=== PATIENT | female | born 1955 | race Caucasian/White ===

== ENCOUNTER 2020-09-13 12:42 | Emergency (ER) | payer MEDICARE, MEDICAID, SELFPAY ==
--- NOTE | 2020-09-13 | ECG_ITS ---
Test Reason : BACK PAIN Blood Pressure : / mmHG Vent. Rate : 070 BPM Atrial Rate : 070 BPM P-R Int : 168 ms QRS Dur : 082 ms QT Int : 380 ms P-R-T Axes : 060 063 048 degrees QTc Int : 410 ms Normal sinus rhythm Normal ECG No previous ECGs available Referred By: Jerald Quach Electronically Signed By:Milo Wilcox
--- NOTE | ~2020-09-13 | XR_ITS ---
EXAMINATION: XR CHEST CLINICAL INFORMATION: Chest wall and posterior rib pain COMPARISON: None TECHNIQUE: 2 views of the chest were obtained. FINDINGS: The heart does not appear enlarged. The thoracic aorta is tortuous. Hilar and mediastinal contours are otherwise unremarkable. The lungs are clear. There is no pleural effusion or pneumothorax. There are degenerative changes of the spine. XR/XR chest 2V IMPRESSION: Tortuous thoracic aorta. No evidence for acute disease in the chest.
[2020-09-13 13:05] VITALS: BP 135/44; PULSE 77; RESP 16; TEMP 36.4; O2SAT 98; BMI 27.4
[2020-09-13 14:36] LABS: MANUAL DIFF FLAG NO
[2020-09-13 14:38] LABS: Basophils Percent Auto 0.4 % (0-2); Eosinophils Absolute Auto 0.2 X10*3/uL (0.0-0.4); Hematocrit 41.2 % (37-47); Hemoglobin 14.1 g/dl (12.0-16.0); Imm Gran Abs Auto 0.02 X10*3/uL (0.00-0.03); Imm Gran Pct Auto 0.2 % (0.0-0.4); Lymphocytes Percent Auto 35.8 % (20-40); Mean Corpuscular HGB Conc 34.2 g/dl (31.0-35.0); Mean Corpuscular Hemoglobin 31.1 pg (27.0-33.0); Mean Corpuscular Volume 90.7 fL (80-98); Mean Platelet Volume 9.5 fL (9.4-12.3); Monocytes Absolute Auto 0.5 X10*3/uL (0.1-1.2); Monocytes Percent Auto 5.7 % (2-11); Neutrophils Absolute Auto 4.6 X10*3/uL (2.0-8.3); Neutrophils Percent Auto 55.9 % (45-73); Platelet Count 270 X10*3/uL (160-400); Red Blood Count 4.54 X10*6/uL (4.20-5.50); Red Cell Distribution Width 12.3 % (11.0-16.0); White Blood Count 8.3 X10*3/uL (4.8-10.8)
[2020-09-13 15:06] LABS: Anion Gap 14 (12-20); Blood Urea Nitrogen 18 mg/dL (9-16); Calcium 9.6 mg/dL (8.4-10.2); Carbon Dioxide 27 mmol/L (22-29); Chloride 99 mmol/L (96-108); Creatinine Clr Calc Pharmacy 78.1; Estimated Glomerular Filt Rate > 60; Glucose Random 106 mg/dL (60-115); Potassium 3.5 mmol/L (3.3-5.1); Sodium 136 mmol/L (135-145)
[2020-09-13 15:15] LABS: Troponin-I High Sensitivity < 3.5 ng/L (<3.5-17.0)
--- NOTE | 2020-09-13 15:21 | ED_ITS ---
HPI - General Adult General Chief complaint: Back Pain/Injury Stated complaint: BACK PAIN Time Seen by Provider: 09/13/20 13:49 History of Present Illness HPI narrative: Patient with 2 complaints First complaint is over the last month she has had several episodes of a sharp chest pain when she is walking that lasts for short amount of time and goes away, this has not happened for about a week and at this time she has no chest pain shortness of breath, she has never had sweating from her forehead she has never had palpitations fainting or feeling faint no nausea Second complaint is for several days she has had a pain in the left side lower posterior rib area that hurts with certain movements or when she touches it, there is no associated chest pain or shortness of breath or numbness weakness or tingling No changes to bowel or bladder Related Data Previous Rx's Medication Instructions Recorded oxycodone 5 mg PO Q6H PRN #10 tab 09/13/20 Allergies Allergy/AdvReac Type Severity Reaction Status Date / Time aspirin [ASPIRIN] Allergy Unknown SICK TO Unverified 01/21/20 16:32 STOMACH Review of Systems Review of Systems: Positive for left side mid back pain worse with movement as well as resolved episodes of chest pain last 1 1 week ago Negatives are no fever no chills no dizziness no fainting no feeling faint no shortness of breath no radiation of pain no neck pain no numbness weakness or tingling no abdominal pain no nausea or vomiting, no skin rashes, no leg swelling or pain Yes all other systems are reviewed and are negative PMFSH Past Medical History Source: nursing notes reviewed Medical History (Updated 09/14/20 @ 00:00 by Issa Devine) Asthma delivery delivered COPD (chronic obstructive pulmonary disease) Degenerative disc disease GERD (gastroesophageal reflux disease) High cholesterol HTN (hypertension) Sciatica Surgical History (Updated 09/13/20 @ 13:08 by Bhupendra Israel) History of appendectomy Social History Social History Advance Directives: No Advance Directives Information Provided: No Physical Exam Vital Signs: Vital Signs: Last Vital Signs Temp 97.6 F 09/13/20 13:05 Pulse 70 09/13/20 16:00 Resp 17 09/13/20 16:00 BP 132/70 09/13/20 16:00 Pulse Ox 96 09/13/20 16:00 Body Mass Index 27.4 General appearance patient is comfortable in no acute distress Head is normocephalic atraumatic Neck is supple The chest is clear to auscultation bilaterally with full symmetric equal breath sounds no adventitious sounds The heart rate and rhythm regular no murmur The abdomen soft nontender The back there was some posterior lateral low rib tenderness, skin was normal, there was no CVA tenderness no spinal tenderness, left rib pain was absent at rest but was easily reproduced with movement and palpation Extremities are full range of motion x4, no edema no calf tenderness or swelling Neuro no gross motor or sensory deficit Course Course Course Narrative: EKG was a normal sinus rhythm, no acute ST or T-wave changes, ventricular rate was 70 QRS duration was 82, normal ND interval was normal, QT was normal, no acute ischemic changes Chest x-ray showed tortuous aorta, no heart enlargement no evidence of pneumonia or pneumothorax Other labs were normal including a troponinLess than 3.5 which is normal, 1 troponin was done today as she had not had any chest pain for about 1 week and has had no chest pain today or in the recent days Patient had reproducible left mid upper back tenderness worse with movement, and is easily reproducible. this is not related to the chest pain that she has had with walking and has been going on for 3 days and seems to be musculoskeletal in nature, and is a separate issue from the chest pain She is treated for musculoskeletal back pain with Tylenol and oxycodone as needed Plan for chest pain is follow with primary doctor this week for referral to possible microstrategy architect for stress testing and further evaluation of her chest pains that happen intermittently with walking Medical Decision Making Lab Data Result diagrams: 09/13/20 14:26 09/13/20 14:26 Labs: Lab Results 09/13/20 09/13/20 09/13/20 Range/Units 14:26 14:26 14:26 WBC 8.3 (4.8-10.8) X10*3/uL RBC 4.54 (4.20-5.50) X10*6/uL Hgb 14.1 (12.0-16.0) g/dl Hct 41.2 (37-47) % MCV 90.7 (80-98) fL MCH 31.1 (27.0-33.0) pg MCHC 34.2 (31.0-35.0) g/dl RDW 12.3 (11.0-16.0) % Plt Count 270 (160-400) X10*3/uL MPV 9.5 (9.4-12.3) fL Immature Gran % (Auto) 0.2 (0.0-0.4) % Neut % (Auto) 55.9 (45-73) % Lymph % (Auto) 35.8 (20-40) % [place] % (Auto) 5.7 (2-11) % Eos % (Auto) 2.0 (0-4) % Baso % (Auto) 0.4 (0-2) % Lymph # (Auto) 3.0 (1.2-4.9) X10*3/uL [place] # (Auto) 0.5 (0.1-1.2) X10*3/uL Eos # (Auto) 0.2 (0.0-0.4) X10*3/uL Baso # (Auto) 0.0 (0.0-0.2) X10*3/uL Abs Immat Gran (auto) 0.02 (0.00-0.03) X10*3/uL Absolute Neuts (auto) 4.6 (2.0-8.3) X10*3/uL Absolute Nucleated RBC 0.000 (0.0-0.012) X10*3/uL Nucleated RBC % (auto) 0.0 (0.0-0.2) /100WBC Sodium 136 (135-145) mmol/L Potassium 3.5 (3.3-5.1) mmol/L Chloride 99 (96-108) mmol/L Carbon Dioxide 27 (22-29) mmol/L Anion Gap 14 (12-20) BUN 18 H (9-16) mg/dL Creatinine 0.71 (0.5-1.4) mg/dL Estim Creat Clear Calc 78.1 Estimated GFR > 60 Random Glucose 106 (60-115) mg/dL Calcium 9.6 (8.4-10.2) mg/dL Troponin I High Sens < 3.5 (<3.5-17.0) ng/L Discharge Plan Discharge Clinical Impression: Chest pain, Back strain Patient Disposition: Home, Self-Care Additional Instructions: You had 2 issues today For what seems to be muscle pain in the left mid back I wrote her for Tylenol and oxycodone if needed More concerning, we did a workup today for the chest pains that you have been experiencing with walking and exertion intermittently over the past weeks. Your troponin was normal and EKG was normal, so your unlikely to have a heart attack within the coming weeks But we were concerned as the symptoms could be from her heart and a warning that something worse could happen, so see the primary care doctor this week you may need a referral to a microstrategy architect for stress testing or other testing to see if these chest pains are from your heart Our chest x-ray did not show any emergent issue today but it did show a tortuous aorta, which can be benign or sometimes can involve blockages in the aorta so follow with primary doctor and microstrategy architect to determine if you need any further evaluation of the aorta Return to the ER immediately if you develop chest pain shortness of breath any worse condition or any concerns Prescriptions: New oxycodone 5 mg tablet 5 mg PO Q6H PRN (Reason: pain) Qty: 10 RF: 0 Interventions: ED Discharge Assessment Last Done: 09/13/20 16:16 Discharge Date/Time: 09/13/20 16:21
[2020-09-13 16:00] VITALS: BP 132/70; PULSE 70; RESP 17; O2SAT 96
== END 2020-09-13 16:21 | disposition home or self-care (01) ==
PROVIDERS: Physician Assistant Medical; Emergency Provider Emergency Medicine; PCP Pediatrics
DX: R07.9 Chest pain, unspecified (principal); S29.012A Strain of muscle and tendon of back wall of thorax, initial encounter; X58.XXXA Exposure to other specified factors, initial encounter; Q25.46 Tortuous aortic arch; I10 Essential (primary) hypertension; E78.5 Hyperlipidemia, unspecified; K21.9 Gastro-esophageal reflux disease without esophagitis; Y93.9 Activity, unspecified; Y92.9 Unspecified place or not applicable; Y99.9 Unspecified external cause status
CPT/HCPCS: 36415; 71046; 80048; 84484; 85025; 93005; 99283; 99284

== ENCOUNTER 2021-04-06 02:52 | Inpatient (IN) | payer MEDICARE, MEDICAID, SELFPAY ==
[2021-04-06] VITALS (8 sets, daily range): BP systolic 110–151; BP diastolic 50–68; PULSE 61–74; RESP 15–18; TEMP 36.4–36.7; O2SAT 98–100; BMI 24.9
--- NOTE | ~2021-04-06 | XR_ITS ---
EXAMINATION: XR CHEST CLINICAL INFORMATION: Chest pain COMPARISON: Chest radiograph 09/13/2020. TECHNIQUE: Frontal view of the chest was obtained. FINDINGS: Normal appearance of the cardiomediastinal structures. No effusions or pneumothoraces. A normal pattern of pulmonary vasculature is noted. Focal coarse reticular opacities are identified in the left lung base unchanged compared with 09/13/2020. No focal pulmonary consolidation. XR/XR chest 1V IMPRESSION: -No acute cardiopulmonary abnormalities. -Minimal left base coarse pulmonary reticular opacities unchanged compared with 09/13/2020 which may represent chronic parenchymal scarring.
--- NOTE | 2021-04-06 03:05 | ED_ITS ---
HPI - Chest Pain General Chief Complaint: Chest Pain Stated Complaint: high bp Time Seen by Provider: 04/06/21 02:57 Source: patient Mode of arrival: ambulatory Limitations: no limitations History of Present Illness MD complaint: chest pain (chills) Pertinent past history: coronary artery disease Onset (ago): hour(s) (630pm) Timing of current episode: now resolved Prior episodes: Yes Onset: during rest Pain location: substernal Pain radiation: back Severity: moderate Quality: sharp Relieving factors: nothing Exacerbating factors: nothing Associated symptoms: other (chills) Treatment prior to arrival: none Related Data Home Medications Medication Instructions Recorded Confirmed albuterol sulfate 90 mcg/actuation 2 puff PO QID PRN 04/06/21 04/06/21 aerosol inhaler (Ventolin HFA) aspirin 81 mg tablet 81 mg PO DAILY 04/06/21 04/06/21 atorvastatin 20 mg tablet 1 tab PO DAILY 04/06/21 04/06/21 lisinopril 20 1 tab PO DAILY 04/06/21 04/06/21 mg-hydrochlorothiazide 25 mg tablet methylphenidate HCl 27 mg 1 tab PO QAM 04/06/21 04/06/21 tablet,extended release 24 hr (Concerta) metoprolol tartrate 25 mg tablet 0.5 tab PO BID 04/06/21 04/06/21 theophylline 300 mg 1 tab PO DAILY 04/06/21 04/06/21 tablet,extended release,12 hr tiotropium bromide 2.5 2 puff INHALATION DAILY 04/06/21 04/06/21 mcg/actuation mist for inhalation (Spiriva Respimat) zafirlukast 20 mg tablet 1 tab PO BID 04/06/21 04/06/21 zolpidem 10 mg tablet 1 tab PO BEDTIME PRN 04/06/21 04/06/21 Allergies Allergy/AdvReac Type Severity Reaction Status Date / Time aspirin [ASPIRIN] Allergy Unknown SICK TO Verified 04/06/21 04:45 STOMACH Review of Systems Review of Systems: Constitutional : No Weight loss, No Fever, pos Chills ENT/Mouth : No sore throat, No Rhinorrhea Eyes: No Eye Pain, No Swelling Cardiovascular : pos Chest Pain, no SOB, no Dyspnea on Exertion, No Orthopnea, No Edema, No Palpitations Respiratory : No Cough, No Sputum Gastrointestinal : no Nausea, No Vomiting, No Diarrhea, No abdominal Pain, No Hematochezia, No Melena Genitourinary : No Dysuria, No Urinary Frequency Musculoskeletal : No joint pain, No Myalgias, No Joint Swelling Skin : No Skin Lesions, No rash Neuro : No Weakness, No Numbness, No Dizziness, No Headache Psych : No Anxiety/Panic, No Depression Heme/Lymph: No Bruising, No Lymphadenopathy Endocrine : No Polyuria, No Polydipsia All other systems reviewed and are negative [facility] Past Medical History Attestation statement: The following information was validated with the patient. Medical History Asthma delivery delivered COPD (chronic obstructive pulmonary disease) Degenerative disc disease GERD (gastroesophageal reflux disease) High cholesterol HTN (hypertension) Sciatica Surgical History History of appendectomy Social History Social History (Updated 04/06/21 @ 03:12 by Cari De La Torre DO) Alcohol intake: current Alcohol intake frequency: holidays/special occasions only Patient Tobacco Use Status: Current everyday Tobacco user Use of substances other than those prescribed or required for medical reasons: No Advance Directives: No Advance Directives Information Provided: Yes Patient : No Physical Exam Vital Signs: Vital Signs: Last Vital Signs Temp 97.5 F 04/06/21 02:55 Pulse 61 04/06/21 05:26 Resp 16 04/06/21 05:26 BP 128/58 L 04/06/21 05:26 Pulse Ox 100 04/06/21 02:55 BMI result Body Mass Index 24.9 Appearance: Alert. Oriented X3. No acute distress. Eyes: Pupils equal, round and reactive to light. ENT: Pharynx normal. Neck: Normal inspection. Neck supple. CVS: Normal heart rate and rhythm. Pulses normal. Respiratory: No respiratory distress. Breath sounds normal. Abdomen: Soft and nontender. Skin: Skin warm and dry. Normal skin color. Normal skin turgor. Extremities: No lower extremity edema. No calf ttp Bounding distal pulses Neuro: Oriented X 3. No motor deficit. No sensory deficit. Course Course Course Narrative: records from [facility] requested patient just had stress test and reportedly it was positive neg ddimer Na low will start on NS low rate - ? wellbutrin patient is also on HC TZ/lisinopril I do not see any prior hyponatremia episodes will repeat troponin, pending [facility] records, will require admission for low Na after multiple calls to [facility] we can only obtain ECHO from February which appeared relatively normal no WMA and [facility] states no record of stress test in their EMR - patient states back in the summer she thinks her test was abnormal which seems unusual that medical records cannot find it will repeat troponin if negative admit for hyponatremia. She has had no chest pain since yesterday. delta troponin negative will admit for hyponatremia MDM - Chest Pain MDM Narrative Medical decision making narrative: 65 yo female with hx of HTN, HLD, COPD, asthma, recent pos stress test comes in with an episode of chest pain and chills at 630pm - she is chest pain free but then noted her BP was 140 then 107 and she felt cold at times so she came to get checked out. Her chest pain has resolved at this time. Will obtain basic labs, troponin, records from [facility] and given chest pain with positive stress test possibly admit for cardiology consult Lab Data Result diagrams: 04/06/21 03:25 04/06/21 03:25 Labs: Lab Results 04/06/21 04/06/21 04/06/21 Range/Units 03:25 03:25 03:25 WBC 7.5 (4.8-10.8) X10*3/uL RBC 4.48 (4.20-5.50) X10*6/uL Hgb 14.4 (12.0-16.0) g/dl Hct 39.0 (37.0-47.0) % MCV 87.1 (80.0-98.0) fL MCH 32.1 (27.0-33.0) pg MCHC 36.9 H (31.0-35.0) g/dl RDW 11.3 (11.0-16.0) % Plt Count 266 (160-400) X10*3/uL MPV 9.2 L (9.4-12.3) fL Immature Gran % (Auto) 0.1 (0.0-0.4) % Neut % (Auto) 50.9 (45-73) % Lymph % (Auto) 37.9 (20-40) % [place] % (Auto) 5.9 (2-11) % Eos % (Auto) 4.7 H (0-4) % Baso % (Auto) 0.5 (0-2) % Lymph # (Auto) 2.8 (1.2-4.9) X10*3/uL [place] # (Auto) 0.4 (0.1-1.2) X10*3/uL Eos # (Auto) 0.4 (0.0-0.4) X10*3/uL Baso # (Auto) 0.0 (0.0-0.2) X10*3/uL Abs Immat Gran (auto) 0.01 (0.00-0.03) X10*3/uL Absolute Neuts (auto) 3.8 (2.0-8.3) x10*3/uL Absolute Nucleated RBC 0.000 (0.0-0.012) X10*3/uL Nucleated RBC % (auto) 0.0 (0.0-0.2) /100WBC PT (9.9-13.0) SEC INR (0.9-1.1) APTT (24.1-38.0) SEC D-Dimer High Sensitivty NG/ML Sodium 124 L (135-145) mmol/L Potassium 3.5 (3.3-5.1) mmol/L Chloride 86 L (96-108) mmol/L Carbon Dioxide 26 (22-29) mmol/L Anion Gap 14 (12-20) BUN 13 (9-16) mg/dL Creatinine 0.78 (0.5-1.4) mg/dL Estim Creat Clear Calc 68.0 Estimated GFR > 60 Random Glucose 112 (60-115) mg/dL Calcium 9.4 (8.4-10.2) mg/dL Magnesium 1.7 (1.6-2.6) mg/dL Total Bilirubin 1.1 H (0.0-1.0) mg/dL Direct Bilirubin 0.5 (0.0-0.5) mg/dL AST 56 H (5-31) U/L ALT 43 H (0-31) U/L Alkaline Phosphatase 81 (39-117) U/L Troponin I High Sens < 3.5 (<3.5-17.0) ng/L Total Protein 6.4 L (6.5-8.0) g/dL Albumin 4.2 (3.5-5.0) g/dL Ethyl Alcohol mg/dL COVID-19 (ALTAGRACIA) (Negative) COVID-19 Clin Com 04/06/21 04/06/21 04/06/21 Range/Units 03:25 04:28 04:28 WBC (4.8-10.8) X10*3/uL RBC (4.20-5.50) X10*6/uL Hgb (12.0-16.0) g/dl Hct (37.0-47.0) % MCV (80.0-98.0) fL MCH (27.0-33.0) pg MCHC (31.0-35.0) g/dl RDW (11.0-16.0) % Plt Count (160-400) X10*3/uL MPV (9.4-12.3) fL Immature Gran % (Auto) (0.0-0.4) % Neut % (Auto) (45-73) % Lymph % (Auto) (20-40) % Roberts % (Auto) (2-11) % Eos % (Auto) (0-4) % Baso % (Auto) (0-2) % Lymph # (Auto) (1.2-4.9) X10*3/uL Roberts # (Auto) (0.1-1.2) X10*3/uL Eos # (Auto) (0.0-0.4) X10*3/uL Baso # (Auto) (0.0-0.2) X10*3/uL Abs Immat Gran (auto) (0.00-0.03) X10*3/uL Absolute Neuts (auto) (2.0-8.3) x10*3/uL Absolute Nucleated RBC (0.0-0.012) X10*3/uL Nucleated RBC % (auto) (0.0-0.2) /100WBC PT 12.2 (9.9-13.0) SEC INR 1.1 (0.9-1.1) APTT 36.4 (24.1-38.0) SEC D-Dimer High Sensitivty < 150 NG/ML Sodium (135-145) mmol/L Potassium (3.3-5.1) mmol/L Chloride (96-108) mmol/L Carbon Dioxide (22-29) mmol/L Anion Gap (12-20) BUN (9-16) mg/dL Creatinine (0.5-1.4) mg/dL Estim Creat Clear Calc Estimated GFR Random Glucose (60-115) mg/dL Calcium (8.4-10.2) mg/dL Magnesium (1.6-2.6) mg/dL Total Bilirubin (0.0-1.0) mg/dL Direct Bilirubin (0.0-0.5) mg/dL AST (5-31) U/L ALT (0-31) U/L Alkaline Phosphatase (39-117) U/L Troponin I High Sens (<3.5-17.0) ng/L Total Protein (6.5-8.0) g/dL Albumin (3.5-5.0) g/dL Ethyl Alcohol < 10 mg/dL COVID-19 (ALTAGRACIA) Negative (Negative) COVID-19 Clin Com See Note 04/06/21 Range/Units 05:37 WBC (4.8-10.8) X10*3/uL RBC (4.20-5.50) X10*6/uL Hgb (12.0-16.0) g/dl Hct (37.0-47.0) % MCV (80.0-98.0) fL MCH (27.0-33.0) pg MCHC (31.0-35.0) g/dl RDW (11.0-16.0) % Plt Count (160-400) X10*3/uL MPV (9.4-12.3) fL Immature Gran % (Auto) (0.0-0.4) % Neut % (Auto) (45-73) % Lymph % (Auto) (20-40) % Roberts % (Auto) (2-11) % Eos % (Auto) (0-4) % Baso % (Auto) (0-2) % Lymph # (Auto) (1.2-4.9) X10*3/uL Roberts # (Auto) (0.1-1.2) X10*3/uL Eos # (Auto) (0.0-0.4) X10*3/uL Baso # (Auto) (0.0-0.2) X10*3/uL Abs Immat Gran (auto) (0.00-0.03) X10*3/uL Absolute Neuts (auto) (2.0-8.3) x10*3/uL Absolute Nucleated RBC (0.0-0.012) X10*3/uL Nucleated RBC % (auto) (0.0-0.2) /100WBC PT (9.9-13.0) SEC INR (0.9-1.1) APTT (24.1-38.0) SEC D-Dimer High Sensitivty NG/ML Sodium (135-145) mmol/L Potassium (3.3-5.1) mmol/L Chloride (96-108) mmol/L Carbon Dioxide (22-29) mmol/L Anion Gap (12-20) BUN (9-16) mg/dL Creatinine (0.5-1.4) mg/dL Estim Creat Clear Calc Estimated GFR Random Glucose (60-115) mg/dL Calcium (8.4-10.2) mg/dL Magnesium (1.6-2.6) mg/dL Total Bilirubin (0.0-1.0) mg/dL Direct Bilirubin (0.0-0.5) mg/dL AST (5-31) U/L ALT (0-31) U/L Alkaline Phosphatase (39-117) U/L Troponin I High Sens < 3.5 (<3.5-17.0) ng/L Total Protein (6.5-8.0) g/dL Albumin (3.5-5.0) g/dL Ethyl Alcohol mg/dL COVID-19 (ALTAGRACIA) (Negative) COVID-19 Clin Com ECG Data ECG #1: Attestation: I personally reviewed and interpreted this ECG as follows: ECG interpretation date: 04/06/21 ECG interpretation time: 03:14 Interpretation: Rate: 64 Rhythm: NSR [place]: normal Normal P waves. Normal ARISTEO. Normal QRS complex. ST T wave : normal , no LEEANNA qTC: normal prior studies: no acute ischemia The study has been interpreted contemporaneously by me. . Discharge Plan Discharge Clinical Impression: Acute hyponatremia Chest pain Qualifiers: Chest pain type: unspecified Qualified Code(s): R07.9 - Chest pain, unspecified Patient Disposition: Admitted As Inpatient
--- NOTE | 2021-04-06 03:05 | ECG_ITS ---
Test Reason : CP Blood Pressure : / mmHG Vent. Rate : 064 BPM Atrial Rate : 064 BPM P-R Int : 192 ms QRS Dur : 086 ms QT Int : 404 ms P-R-T Axes : 077 051 047 degrees QTc Int : 416 ms Normal sinus rhythm Normal ECG When compared with ECG of 13-SEP-2020 13:55, No significant change was found Referred By: Cari De La Torre Electronically Signed By:ANDREW ARMSTRONG
[2021-04-06 03:31] LABS: Basophils Percent Auto 0.5 % (0-2); Eosinophils Absolute Auto 0.4 X10*3/uL (0.0-0.4); Eosinophils Percent Auto 4.7 % (0-4); Hemoglobin 14.4 g/dl (12.0-16.0); Imm Gran Abs Auto 0.01 X10*3/uL (0.00-0.03); Imm Gran Pct Auto 0.1 % (0.0-0.4); Lymphocytes Absolute Auto 2.8 X10*3/uL (1.2-4.9); Lymphocytes Percent Auto 37.9 % (20-40); MANUAL DIFF FLAG NO; Mean Corpuscular HGB Conc 36.9 g/dl (31.0-35.0); Mean Corpuscular Hemoglobin 32.1 pg (27.0-33.0); Mean Corpuscular Volume 87.1 fL (80.0-98.0); Mean Platelet Volume 9.2 fL (9.4-12.3); Monocytes Absolute Auto 0.4 X10*3/uL (0.1-1.2); Monocytes Percent Auto 5.9 % (2-11); Neutrophils Absolute Auto 3.8 x10*3/uL (2.0-8.3); Neutrophils Percent Auto 50.9 % (45-73); Platelet Count 266 X10*3/uL (160-400); Red Blood Count 4.48 X10*6/uL (4.20-5.50); Red Cell Distribution Width 11.3 % (11.0-16.0); White Blood Count 7.5 X10*3/uL (4.8-10.8)
[2021-04-06 03:39] LABS: D Dimer High Sensitivity < 150 NG/ML
[2021-04-06 03:52] LABS: Troponin-I High Sensitivity < 3.5 ng/L (<3.5-17.0)
[2021-04-06 03:56] LABS: INTERNATIONAL NORM RATIO 1.1 (0.9-1.1); Prothrombin Time 12.2 SEC (9.9-13.0)
[2021-04-06 03:58] LABS: Partial Thromboplastin Time 36.4 SEC (24.1-38.0)
[2021-04-06 04:00] LABS: Alanine Aminotransferase 43 U/L (0-31); Albumin Level 4.2 g/dL (3.5-5.0); Alkaline Phosphatase 81 U/L (39-117); Anion Gap 14 (12-20); Aspartate Amino Transferase 56 U/L (5-31); Bilirubin Direct 0.5 mg/dL (0.0-0.5); Bilirubin Total 1.1 mg/dL (0.0-1.0); Blood Urea Nitrogen 13 mg/dL (9-16); Calcium 9.4 mg/dL (8.4-10.2); Carbon Dioxide 26 mmol/L (22-29); Chloride 86 mmol/L (96-108); Estimated Glomerular Filt Rate > 60; Glucose Random 112 mg/dL (60-115); Magnesium 1.7 mg/dL (1.6-2.6); Potassium 3.5 mmol/L (3.3-5.1); Sodium 124 mmol/L (135-145); Total Protein 6.4 g/dL (6.5-8.0)
[2021-04-06 04:50] LABS: COVID-19 Test Negative (Negative)
[2021-04-06 04:53] LABS: Ethanol < 10 mg/dL
[2021-04-06] MEDS: 0.9 % Sodium Chloride 1,000 ML 75 ML IVCONT ×2 (05:10→20:25)
[2021-04-06 06:01] LABS: Troponin-I High Sensitivity < 3.5 ng/L (<3.5-17.0)
[2021-04-06] MEDS: Nicotine 21 MG PATCH.TD24 TRANSDERMA (06:08)
--- NOTE | 2021-04-06 07:52 | PHA.MEDREC ---
Pharmacy Consult ? Medication Reconciliation Pharmacy has reviewed the medication reconciliation completed by Alireza. A few medications were missed; Advair, omeprazole and APAP. Patient report the pharmacy keeps filling bupropion but she is no longer taking it. Patient also reports she does not take amlodipine. Laury Judge, PharmD
--- NOTE | 2021-04-06 09:12 | PC.NURSE ---
PT HAS BEEN SEEN BY HOSPITALIST, IVF INFUSING, NEEDS BEING MET TOLERATING PO, VISITOR AT BEDSIDE. BED ASSIGNMENT PENDING
--- NOTE | 2021-04-06 09:49 | P.HPHOSP_ITS ---
History of Present Illness Date of Service: 04/06/21 Chief Complaint: chest pain, back pain, weakness This is a 65 yo F with a PMH as outlined below who presents to the hospital with multiple complaints including chest pain, back pain and generalized weakness. Patient reports that she has had substernal chest pain for which is he getting work up at [facility]. (See ED provider notes regarding this). She reports gener alized weakness of a few days duration. She denies any fevers or chills. She denies any shortness of breath or cough. She reports that she has a good appetite and eats 3 meals a day. She reports drinking plenty of water / seltzer daily, but unable to quantify how much. She denies excessive alcohol intake, particularly beer. In the ED, she was ruled out for ACS and her chest pain has since resolved. However, lab work did reveal hyponatremia of 124 and she will be admitted for further treatment of this. Review of Systems Review of Systems: negative except HPI [facility] Medical History (Updated 04/06/21 @ 09:55 by Keaton Lema MD) Asthma delivery delivered COPD (chronic obstructive pulmonary disease) Degenerative disc disease GERD (gastroesophageal reflux disease) High cholesterol HTN (hypertension) Sciatica Family History (Updated 04/06/21 @ 09:54 by Keaton Lema MD) Other CAD (coronary artery disease) Pertinent family history: CAD in father Surgical History History of appendectomy Social History (Updated 04/06/21 @ 03:12 by Cari De La Torre DO) Alcohol intake: current Alcohol intake frequency: holidays/special occasions only Patient Tobacco Use Status: Current everyday Tobacco user Use of substances other than those prescribed or required for medical reasons: No Advance Directives: No Advance Directives Information Provided: Yes Patient : No Meds Allergies Allergy/AdvReac Type Severity Reaction Status Date / Time aspirin [ASPIRIN] Allergy Unknown SICK TO Verified 04/06/21 04:45 STOMACH Active Medications: Current Medications Acetaminophen (Acetaminophen 325 Mg Tablet) 650 mg PO Q6H PRN PRN Reason: Pain, Mild (Pain Scale 1-3) Atorvastatin Calcium (Atorvastatin Calcium 20 Mg Tablet) 20 mg PO DAILY [facility] Enoxaparin Sodium (Enoxaparin Sodium 40 Mg/0.4 Ml Syringe) 40 mg SUBCUT Q24H HALLE Sodium Chloride (Ns) 1,000 mls @ 75 mls/hr IVCONT .[id number] [facility] Last Admin: 04/06/21 05:10 Dose: 75 mls/hr Documented by: Metoprolol Tartrate (Metoprolol Tartrate 12.5 Mg Halftab) 12.5 mg PO BID [facility]; Protocol Patient Own Medication ( Methylphenidate Hcl [Concerta] 27 Mg Tablet 24 Hr)) 1 each PO DAILY [facility] Omeprazole (Omeprazole 20 Mg Capsule.Dr) 20 mg PO DAILY [facility] Pharmacy Consult (Consult Rx Perform Med Rec) 1 each MISCELLANE ONCE PRN PRN Reason: Consult order Sodium Chloride (0.9 % Sodium Chloride Flush 3 Ml Syringe) 3 ml IVFLUSH QSHIFT [facility] Theophylline (Theophylline Anhydrous Er 300 Mg Tab.Er.12h) 300 mg PO DAILY [facility] Tiotropium [place] (Tiotropium [place] 18 Mcg Cap.W.Dev) 1 puff INHALE RDAILY [facility] Zolpidem Tartrate (Zolpidem Tartrate 5 Mg Tablet) 5 mg PO BEDTIME PRN PRN Reason: Sleep Home Medications Medication Instructions Recorded Confirmed Last Taken Type acetaminophen 500 mg tablet 1,000 mg PO Q6H PRN 04/06/21 04/06/21 Unknown History albuterol sulfate 90 mcg/actuation 2 puff PO QID PRN 04/06/21 04/06/21 04/05/21 History aerosol inhaler (Ventolin HFA) aspirin 81 mg chewable tablet 81 mg PO DAILY 04/06/21 04/06/21 04/05/21 History atorvastatin 20 mg tablet 1 tab PO DAILY 04/06/21 04/06/21 04/05/21 History fluticasone 250 mcg-salmeterol 50 1 puff PO BID 04/06/21 04/06/21 04/05/21 History mcg/dose blistr powdr for inhalation (Advair Diskus) lisinopril 20 1 tab PO DAILY 04/06/21 04/06/21 04/05/21 History mg-hydrochlorothiazide 25 mg tablet methylphenidate HCl 27 mg 1 tab PO QAM 04/06/21 04/06/21 04/05/21 History tablet,extended release 24 hr (Concerta) metoprolol tartrate 25 mg tablet 0.5 tab PO BID 04/06/21 04/06/21 04/05/21 History omeprazole 20 mg capsule,delayed 1 cap PO DAILY 04/06/21 04/06/21 04/05/21 History release theophylline 300 mg 1 tab PO DAILY 04/06/21 04/06/21 04/05/21 History tablet,extended release,12 hr tiotropium bromide 2.5 2 puff INHALATION DAILY 04/06/21 04/06/21 04/05/21 History mcg/actuation mist for inhalation (Spiriva Respimat) zafirlukast 20 mg tablet 1 tab PO BID 04/06/21 04/06/21 Unknown History zolpidem 10 mg tablet 1 tab PO BEDTIME PRN 04/06/21 04/06/21 04/05/21 History Physical Exam Vital Signs and Narrative: Vital Signs: Last Vital Signs Temp 98.1 F 04/06/21 08:16 Pulse 61 04/06/21 08:16 Resp 15 04/06/21 08:16 BP 110/50 L 04/06/21 08:16 Pulse Ox 100 04/06/21 08:16 BMI result Body Mass Index 24.9 Const: Other: Constitutional - Awake and Alert, No apparent distress Eyes - PERRLA, EOMI Cardiovascular - S1S2, RRR, No edema Respiratory - Normal lung expansion, Normal respiratory effort, No respiratory distress, CTA bilaterally Gastrointestinal - NT / ND; +BS; No rebound or guarding - No CVA tenderness Extremities - no calf tenderness bilaterally, no swelling Musculoskeletal - Normal inspection, normal ROM Skin - Warm/Dry Neurological - Alert & oriented x3, No focal deficit Psychological - Appropriate affect Results Labs CBC and Chem 7: 04/06/21 03:25 04/06/21 03:25 Labs: Laboratory Results - last 24 hr 04/06/21 04/06/21 04/06/21 03:25 03:25 03:25 MCV 87.1 MCH 32.1 MCHC 36.9 H RDW 11.3 Plt Count 266 MPV 9.2 L Immature Gran % (Auto) 0.1 Neut % (Auto) 50.9 Lymph % (Auto) 37.9 Rich % (Auto) 5.9 Eos % (Auto) 4.7 H Baso % (Auto) 0.5 Lymph # (Auto) 2.8 Rich # (Auto) 0.4 Eos # (Auto) 0.4 Baso # (Auto) 0.0 Abs Immat Gran (auto) 0.01 Absolute Neuts (auto) 3.8 Absolute Nucleated RBC 0.000 Nucleated RBC % (auto) 0.0 PT INR APTT D-Dimer High Sensitivty Anion Gap 14 Estim Creat Clear Calc 68.0 Estimated GFR > 60 Random Glucose 112 Calcium 9.4 Magnesium 1.7 Total Bilirubin 1.1 H Direct Bilirubin 0.5 AST 56 H ALT 43 H Alkaline Phosphatase 81 Troponin I High Sens < 3.5 Total Protein 6.4 L Albumin 4.2 Ethyl Alcohol COVID-19 (ALTAGRACIA) COVID-19 Clin Com 04/06/21 04/06/21 04/06/21 03:25 04:28 04:28 MCV MCH MCHC RDW Plt Count MPV Immature Gran % (Auto) Neut % (Auto) Lymph % (Auto) Rich % (Auto) Eos % (Auto) Baso % (Auto) Lymph # (Auto) Rich # (Auto) Eos # (Auto) Baso # (Auto) Abs Immat Gran (auto) Absolute Neuts (auto) Absolute Nucleated RBC Nucleated RBC % (auto) PT 12.2 INR 1.1 APTT 36.4 D-Dimer High Sensitivty < 150 Anion Gap Estim Creat Clear Calc Estimated GFR Random Glucose Calcium Magnesium Total Bilirubin Direct Bilirubin AST ALT Alkaline Phosphatase Troponin I High Sens Total Protein Albumin Ethyl Alcohol < 10 COVID-19 (ALTAGRACIA) Negative COVID-19 Clin Com See Note 04/06/21 05:37 MCV MCH MCHC RDW Plt Count MPV Immature Gran % (Auto) Neut % (Auto) Lymph % (Auto) Rich % (Auto) Eos % (Auto) Baso % (Auto) Lymph # (Auto) Rich # (Auto) Eos # (Auto) Baso # (Auto) Abs Immat Gran (auto) Absolute Neuts (auto) Absolute Nucleated RBC Nucleated RBC % (auto) PT INR APTT D-Dimer High Sensitivty Anion Gap Estim Creat Clear Calc Estimated GFR Random Glucose Calcium Magnesium Total Bilirubin Direct Bilirubin AST ALT Alkaline Phosphatase Troponin I High Sens < 3.5 Total Protein Albumin Ethyl Alcohol COVID-19 (ALTAGRACIA) COVID-19 Clin Com Imaging Radiologist's Impressions: Impressions Chest X-Ray 04/06/21 03:31 IMPRESSION: -No acute cardiopulmonary abnormalities. -Minimal left base coarse pulmonary reticular opacities unchanged compared with 09/13/2020 which may represent chronic parenchymal scarring. Assessment and Plan (1) Acute hyponatremia: Status: Acute This is a 65 yo F with multiple medical problems including COPD/Asthma, GERD, HTN, DM (reports she has refused to take meds for this) who presents to the hospital with multiple complaints including chest/back pain and generalized weakness. Her chest pain has resolved, however she is noted to have hyponatremia and will be admitted for further care of this. 1. Symptomatic hyponatremia SNa 124 - she has been started on gentle hydration urine studies ordered, but interpretation may be difficult to to receving IVF Stat BMP ordered and pending, repeat BMP this evening She is on HCTZ -- could be secondary to this Restrict free water 2. Chest pain, resolved HS trop-I less than 3.5 x 2; EKG without any ischemic changes will have her follow up at [facility] where she is being worked up repeat trop-I / EKG with any chest pain 3. COPD, not in exacerbation on multiple meds at home -- continue 4. HTN BP on the softer side, observe off meds for now discontinue hctz upon discharge 5. GERD PPI Full Code DVT pptx, Lovenox Quality Stroke Does the patient have a stroke diagnosis?: No VTE Prior VTE?: No VTE Risk Level:: Medical - moderate - high VTE Device Contraindication: Treatment Not Indicated VTE Drug Contraindication: N/A - Med Ordered
[2021-04-06 10:24] LABS: Anion Gap 11 (12-20); Blood Urea Nitrogen 9 mg/dL (9-16); Calcium 8.9 mg/dL (8.4-10.2); Carbon Dioxide 26 mmol/L (22-29); Chloride 90 mmol/L (96-108); Creatinine Clr Calc Pharmacy 81.6; Estimated Glomerular Filt Rate > 60; Glucose Random 145 mg/dL (60-115); Potassium 3.3 mmol/L (3.3-5.1); Sodium 124 mmol/L (135-145)
[2021-04-06] MEDS: Atorvastatin Calcium 20 MG TABLET PO (11:00)
[2021-04-06] MEDS: Theophylline Anhydrous ER 300 MG TAB.ER.12H PO (11:01)
[2021-04-06] MEDS: Metoprolol Tartrate 12.5 MG HALFTAB PO ×2 (11:01→20:25)
[2021-04-06] MEDS: Omeprazole 20 MG CAPSULE.DR PO (11:01)
[2021-04-06] MEDS: Enoxaparin Sodium 40 MG/0.4 ML SYRINGE SUBCUT (11:02)
[2021-04-06 12:29] LABS: Osmolality Urine 188 mosm/kg (373-1093)
--- NOTE | 2021-04-06 16:07 | PC.NURSE ---
report called to the floor, will notify techs to transport
[2021-04-06] MEDS: Zolpidem Tartrate 5 MG TABLET PO (20:28)
[2021-04-07] VITALS (10 sets, daily range): BP systolic 119–147; BP diastolic 55–71; PULSE 62–76; RESP 16–18; TEMP 36.1–36.6; O2SAT 97–99
[2021-04-07] MEDS: Theophylline Anhydrous ER 300 MG TAB.ER.12H PO (07:57)
[2021-04-07] MEDS: Metoprolol Tartrate 12.5 MG HALFTAB PO ×2 (07:57→21:04)
[2021-04-07] MEDS: Omeprazole 20 MG CAPSULE.DR PO (07:58)
[2021-04-07] MEDS: Atorvastatin Calcium 20 MG TABLET PO (07:58)
[2021-04-07] MEDS: 0.9 % Sodium Chloride Flush 3 ML SYRINGE IVFLUSH ×2 (07:58→21:08)
[2021-04-07 08:30] LABS: Anion Gap 12 (12-20); Blood Urea Nitrogen 7 mg/dL (9-16); Calcium 8.9 mg/dL (8.4-10.2); Carbon Dioxide 23 mmol/L (22-29); Chloride 97 mmol/L (96-108); Creatinine Clr Calc Pharmacy 82.9; Estimated Glomerular Filt Rate > 60; Glucose Random 96 mg/dL (60-115); Potassium 3.9 mmol/L (3.3-5.1); Sodium 128 mmol/L (135-145)
[2021-04-07] MEDS: Enoxaparin Sodium 40 MG/0.4 ML SYRINGE SUBCUT (09:36)
--- NOTE | 2021-04-07 10:11 | HO.PM.IMPN ---
Subjective Subjective Date of Service: 04/07/21 Interval History: Seen and examined this morning No overnight events Follow-up for hyponatremia No chest pain, shortness of breath. No specific complaints Review of Systems Review of Systems: Yes all other systems are reviewed and are negative Constitutional Constitutional: Denies chills and Denies fever(s) Cardiovascular Cardiovascular: Denies chest pain Respiratory Respiratory: Denies cough Gastrointestinal Gastrointestinal: Denies abdominal pain Physical Exam Vital Signs: Vital Signs: Last Vital Signs Temp 97.3 F 04/07/21 08:00 Pulse 62 04/07/21 08:00 Resp 18 04/07/21 08:00 BP 136/62 04/07/21 08:00 Pulse Ox 98 04/07/21 08:00 BMI result Body Mass Index 24.9 Const: General: comfortable, no acute distress, alert and awake Nutritional Appearance: well nourished Orientation/consciousness: patient oriented x3 HENMT: Head: Yes normocephalic and Yes atraumatic Eyes: Sclerae: sclerae normal Resp: Effort & Inspection: normal respiratory effort and no respiratory distress Auscultation: clear to auscultation bilaterally Cardio: Rate: regular rate Rhythm: regular rhythm GI: Palpation (GI): Soft to palpation and nontender Neuro: General: patient oriented x3 Cranial nerves: Yes CN's II-XII intact bilaterally and Yes Bilaterally intact EOM present Extrem: Other: no edema Objective Data Active Medications Acetaminophen (Acetaminophen 325 Mg Tablet) 650 mg PO Q6H PRN PRN Reason: Pain, Mild (Pain Scale 1-3) Albuterol Sulfate (Albuterol Sulfate 90 Mcg 8 Gm Inhaler) 2 puff INHALE QID PRN PRN Reason: Shortness Of Breath Atorvastatin Calcium (Atorvastatin Calcium 20 Mg Tablet) 20 mg PO DAILY [facility] Last Admin: 04/07/21 07:58 Dose: 20 mg Documented by: MICHELE Enoxaparin Sodium (Enoxaparin Sodium 40 Mg/0.4 Ml Syringe) 40 mg SUBCUT Q24H [facility] Last Admin: 04/07/21 09:36 Dose: 40 mg Documented by: MICHELE Sodium Chloride (Ns) 1,000 mls @ 75 mls/hr IVCONT .[id number] [facility] Last Admin: 04/06/21 20:25 Dose: 75 mls/hr Documented by: [email or web address] Metoprolol Tartrate (Metoprolol Tartrate 12.5 Mg Halftab) 12.5 mg PO BID [facility]; Protocol Last Admin: 04/07/21 07:57 Dose: 12.5 mg Documented by: MICHELE Patient Own Medication ( Methylphenidate Hcl [Concerta] 27 Mg Tablet 24 Hr)) 1 each PO DAILY [facility] Last Admin: 04/06/21 11:01 Dose: 1 each Documented by: SANDY Patient Own Medication (Advair 250/50) 1 each INHALE RBID [facility] Last Admin: 04/06/21 20:30 Dose: 1 each Documented by: JHON Omeprazole (Omeprazole 20 Mg Capsule.Dr) 20 mg PO DAILY [facility] Last Admin: 04/07/21 07:58 Dose: 20 mg Documented by: MICHELE Pharmacy Consult (Consult Rx Perform Med Rec) 1 each MISCELLANE ONCE PRN PRN Reason: Consult order Sodium Chloride (0.9 % Sodium Chloride Flush 3 Ml Syringe) 3 ml IVFLUSH QSHIFT [facility] Last Admin: 04/07/21 07:58 Dose: 3 ml Documented by: MICHELE Theophylline (Theophylline Anhydrous Er 300 Mg Tab.Er.12h) 300 mg PO DAILY [facility] Last Admin: 04/07/21 07:57 Dose: 300 mg Documented by: MICHELE Tiotropium [place] (Tiotropium [place] 18 Mcg Cap.W.Dev) 1 puff INHALE RDAILY [facility] Last Admin: 04/07/21 08:10 Dose: Not Given Documented by: CHRISTY Non-Admin Reason: Med Not Available Zolpidem Tartrate (Zolpidem Tartrate 5 Mg Tablet) 5 mg PO BEDTIME PRN PRN Reason: Sleep Last Admin: 04/06/21 20:28 Dose: 5 mg Documented by: JHON Labs CBC & Chem 7: 04/06/21 03:25 04/07/21 07:40 Labs: Laboratory Results - last 24 hr 04/06/21 04/06/21 04/06/21 09:48 11:28 11:28 Anion Gap 11 L Estim Creat Clear Calc 81.6 Estimated GFR > 60 Random Glucose 145 H Calcium 8.9 Urine Osmolality 188 L Ur Random Sodium 25.0 04/07/21 07:40 Anion Gap 12 Estim Creat Clear Calc 82.9 Estimated GFR > 60 Random Glucose 96 Calcium 8.9 Urine Osmolality Ur Random Sodium Assessment and Plan (1) Acute hyponatremia: Status: Acute Assessment and Plan: This is a 65 yo F with multiple medical problems including COPD/Asthma, GERD, HTN, DM (reports she has refused to take meds for this) who presents to the hospital with multiple complaints including chest/back pain and generalized weakness. Her chest pain has resolved, however she is noted to have hyponatremia and will be admitted for further care of this. Symptomatic hyponatremia Na increased to 128 She is on HCTZ -- could be secondary to this. HCTZ on hold Restrict free water Follow sodium levels Chest pain, resolved HS trop-I less than 3.5 x 2; EKG without any ischemic changes will have her follow up at [facility] where she is being worked up repeat trop-I / EKG with any chest pain COPD, not in exacerbation on multiple meds at home -- continue HTN Continue metoprolol Hold HCTZ for hyponatremia,discontinue hctz upon discharge Lisinopril on hold, resume as blood pressure allows HLD continue statin GERD PPI Full Code DVT pptx, Lovenox Attending: dr. briones Quality Stroke Does the patient have a stroke diagnosis?: No VTE Prior VTE?: No VTE Risk Level:: Medical - moderate - high VTE Device Contraindication: Treatment Not Indicated VTE Drug Contraindication: N/A - Med Ordered
--- NOTE | 2021-04-07 10:24 | MHC.CLN ---
NUTRITION WEIGHT LOSS X 7 MONTHS=-9.4%. PATIENT REPORTS CURRENTLY EATS WELL. DESCRIBED STRESS WITH FAMILY ISSUES THAT LIKELY LED TO DECREASED INTAKE AND WEIGHT LOSS. DIET=CARDIAC WITH 1200 ML FLUID RESTRICTION (LOW NA NOTED). NO ADDITIONAL NUTRITION INTERVENTIONS.
[2021-04-07] MEDS: 0.9 % Sodium Chloride 1,000 ML 75 ML IVCONT (12:49)
--- NOTE | 2021-04-07 13:14 | MHC.CM.PN ---
NURSE LABORER GENERAL NOTE CASE DISCUSED WITH STAFF NURSE AND HOSPITLIST . MET WITH PATIENT SHE LIVES ON THE FIRST FLOOR OF HER HOME AND HER DAUGHTER, AND 13 YR OLD GRANDDAUGHTER LIVES ON THE SECOND FLOOR . 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 SHE CONFIEMD PCP DR MICHELLE [facility] COVID VACCINE PFALEM AT [facility] X2 SHOTS EDUCATED ABOUT THE IMPORTANCE OF HAVING A HEALTH CARE PROXY BUT DECLINED TO COMPLETE ONE AT THIS TOIME DISCHARGE PLAN HOME NO SERVICES VS IF PHYSICIAN ORDERS WILLING TO HAVE THE [facility] -INIATED REFERRAL TRANSPORT FAMILY FOLLOWED BY PULMONARY DR DEL VALLE AT [facility] MEDICARE IMM EXPLAINED AND GIVEN TO PATIENT
[2021-04-07] MEDS: Nicotine 14 MG PATCH.TD24 TRANSDERMA (14:15)
[2021-04-08 04:00] VITALS: BP 136/62; PULSE 64; RESP 16; TEMP 36.3; O2SAT 100
[2021-04-08] MEDS: 0.9 % Sodium Chloride Flush 3 ML SYRINGE IVFLUSH (07:08)
[2021-04-08] MEDS: 0.9 % Sodium Chloride 1,000 ML 75 ML IVCONT (07:09)
[2021-04-08 07:12] VITALS: BP 122/58; PULSE 66; RESP 14; TEMP 36.5; O2SAT 97
[2021-04-08] MEDS: Nicotine 14 MG PATCH.TD24 TRANSDERMA (08:00)
[2021-04-08 08:01] VITALS: BP 122/58; PULSE 66
[2021-04-08] MEDS: Omeprazole 20 MG CAPSULE.DR PO (08:01)
[2021-04-08] MEDS: Atorvastatin Calcium 20 MG TABLET PO (08:01)
[2021-04-08] MEDS: Metoprolol Tartrate 12.5 MG HALFTAB PO (08:01)
[2021-04-08] MEDS: Theophylline Anhydrous ER 300 MG TAB.ER.12H PO (08:01)
[2021-04-08] MEDS: Enoxaparin Sodium 40 MG/0.4 ML SYRINGE SUBCUT (09:36)
[2021-04-08 11:12] LABS: Anion Gap 9 (12-20); Blood Urea Nitrogen 6 mg/dL (9-16); Calcium 9.4 mg/dL (8.4-10.2); Carbon Dioxide 27 mmol/L (22-29); Chloride 98 mmol/L (96-108); Creatinine Clr Calc Pharmacy 82.9; Estimated Glomerular Filt Rate > 60; Glucose Random 82 mg/dL (60-115); Potassium 4.1 mmol/L (3.3-5.1); Sodium 130 mmol/L (135-145)
[2021-04-08 11:34] VITALS: BP 123/60; PULSE 63; RESP 16; TEMP 36.6; O2SAT 98
--- NOTE | 2021-04-08 11:43 | MHC.CM.PN ---
PT TO DC HOME TODAY WITH NO SERVICES. FAMILY TO TRANSPORT
--- NOTE | 2021-04-08 12:05 | P.DS_ITS ---
DS: Providers Provider Date of Service: 04/08/21 <KAL Johnson - Last Filed: 04/08/21 12:08> Date of admission: 04/06/21 09:14 <KAL Johnson - Last Filed: 04/08/21 12:08> Date of discharge: 04/08/21 <KAL Johnson - Last Filed: 04/08/21 12:08> Primary care physician: Unknown Physician <KAL Johnson - Last Filed: 04/08/21 12:08> Attending physician on discharge: Carrillo Mlapah <KAL Johnson - Last Filed: 04/08/21 12:08> Discharging clinician: Dayanara Enriquez <KAL Johnson - Last Filed: 04/08/21 12:08> DS: Diagnosis Discharge Diagnosis (1) Acute hyponatremia: Status: Acute <KAL Johnson - Last Filed: 04/08/21 12:08> DS: Summary Hospital Course Hospital Course: From H&P on day of admission This is a 65 yo F with a PMH as outlined below who presents to the hospital with multiple complaints including chest pain, back pain and generalized weakness. Patient reports that she has had substernal chest pain for which is he getting work up at [facility]. (See ED provider notes regarding this). She reports generalized weakness of a few days duration. She denies any fevers or chills. She denies any shortness of breath or cough. She reports that she has a good appetite and eats 3 meals a day. She reports drinking plenty of water / seltzer daily, but unable to quantify how much. She denies excessive alcohol intake, particularly beer. In the ED, she was ruled out for ACS and her chest pain has since resolved. However, lab work did reveal hyponatremia of 124 and she will be admitted for further treatment of this. Hyponatremia. Sodium on day of admission was 124. Hydrochlorothiazide was stopped. She was given gentle IV fluid rehydration, her sodium gradually improved to 130 on the day of discharge. Patient is eager to return home will be discharged in stable condition with recommendation to follow up with PCP. Repeat BMP will be ordered for 1 week. Chest pain. ACS was ruled out with 2- highly sensitive troponins. EKG showed no acute ischemic changes. Chest x-ray with no acute changes. Recommend outpatient follow-up with PCP. HTN. Blood pressure has been controlled off of lisinopril/hydrochlorothiazide. Continue home metoprolol follow-up with PCP for close blood pressure monitoring. <KAL Johnson - Last Filed: 04/08/21 12:08> Time Spent with Patient Time attestation: Total time spent providing and/or coordinating discharge services: <KAL Johnson - Last Filed: 04/08/21 12:08> Discharge coordination time: Greater than 30 minutes <KAL Johnson Last Filed: 04/08/21 12:08> Quality: Stroke Does the patient have a stroke diagnosis?: No <KAL Johnson Last Filed: 04/08/21 12:08> Physical Exam Vital Signs: Vital Signs: Last Vital Signs Temp 97.8 F 04/08/21 11:34 Pulse 63 04/08/21 11:34 Resp 16 04/08/21 11:34 BP 123/60 04/08/21 11:34 Pulse Ox 98 04/08/21 11:34 BMI result Body Mass Index 24.9 <KAL Johnson - Last Filed: 04/08/21 12:08> Const: General: comfortable, no acute distress, alert and awake <KAL Johnson - Last Filed: 04/08/21 12:08> Nutritional Appearance: well nourished <KAL Johnson - Last Filed: 04/08/21 12:08> Orientation/consciousness: patient oriented x3 <KAL Johnson Last Filed: 04/08/21 12:08> HENMT: Head: Yes normocephalic and Yes atraumatic <KAL Johnson - Last Filed: 04/08/21 12:08> Eyes: Sclerae: sclerae normal <KAL Johnson Last Filed: 04/08/21 12:08> Resp: Effort & Inspection: normal respiratory effort and no respiratory distress <KAL Johnson Last Filed: 04/08/21 12:08> Auscultation: clear to auscultation bilaterally <KAL Johnson - Last Filed: 04/08/21 12:08> Cardio: Rate: regular rate <KAL Johnson - Last Filed: 04/08/21 12:08> Rhythm: regular rhythm <KAL Johnson - Last Filed: 04/08/21 12:08> GI: Palpation (GI): Soft to palpation and nontender <KAL Johnson - Last Filed: 04/08/21 12:08> Neuro: General: patient oriented x3 <KAL Johnson - Last Filed: 04/08/21 12:08> Cranial nerves: Yes CN's II-XII intact bilaterally and Yes Bilaterally intact EOM present <KAL Johnson - Last Filed: 04/08/21 12:08> Extrem: Other: no edema <KAL Johnson - Last Filed: 04/08/21 1 2:08> DS: Data Data Completed and Pending Labs on day of discharge: Laboratory Results - last 24 hr 04/08/21 10:01 Sodium 130 L Potassium 4.1 Chloride 98 Carbon Dioxide 27 Anion Gap 9 L BUN 6 L Creatinine 0.64 Estim Creat Clear Calc 82.9 Estimated GFR > 60 Random Glucose 82 Calcium 9.4 <KAL Johnson - Last Filed: 04/08/21 12:08> Discharge Plan Discharge Patient Disposition: Home, Self-Care <KAL Johnson - Last Filed: 04/08/21 12:08> Discharge Diagnosis: hyponatremia <KAL Johnson - Last Filed: 04/08/21 12:08> hyponatremia <Carrillo Browning MD - Last Filed: 04/09/21 08:27> Referrals: Amelia Johnson MD [Physician] - 1 Week Physician,Unknown J [Primary Care Provider] - 1 Week <KAL Johnson Last Filed: 04/08/21 12:08> Discharge Medications: Continued atorvastatin 20 mg tablet 1 tab PO DAILY RF: 0 theophylline 300 mg tablet extended release 12 hr 1 tab PO DAILY RF: 0 zafirlukast 20 mg tablet 1 tab PO BID RF: 0 zolpidem 10 mg tablet 1 tab PO BEDTIME PRN (Reason: Sleep) RF: 0 albuterol sulfate [Ventolin HFA] 90 mcg/actuation HFA aerosol inhaler 2 puff PO QID PRN (Reason: Shortness Of Breath) RF: 0 methylphenidate HCl [Concerta] 27 mg tablet extended release 24hr 1 tab PO QAM RF: 0 metoprolol tartrate 25 mg tablet 0.5 tab PO BID RF: 0 Spiriva Respimat 2.5 mcg/actuation mist 2 puff inhalation DAILY RF: 0 fluticasone propion-salmeterol [Advair Diskus] 250-50 mcg/dose blister with device 1 puff PO BID RF: 0 acetaminophen 500 mg Tablet 1,000 mg PO Q6H PRN (Reason: Pain) RF: 0 omeprazole 20 mg capsule,delayed release(DR/EC) 1 cap PO DAILY RF: 0 aspirin 81 mg Tablet,Chewable 81 mg PO DAILY RF: 0 Discontinued lisinopril-hydrochlorothiazide 20-25 mg tablet 1 tab PO DAILY RF: 0 <KAL Johnson - Last Filed: 04/08/21 12:08> Discharge Orders: Discharge Order (Routine); Ordered 04/08/21 Ordered By: Dayanara Enriquez <KAL Johnson - Last Filed: 04/08/21 12:08> Activity on Discharge: As tolerated <KAL Johnson - Last Filed: 04/08/21 12:08> As tolerated <Carrillo Browning MD - Last Filed: 04/09/21 08:27> Stand Alone Forms: Patient Portal Discharge page <KAL Johnson - Last Filed: 04/08/21 12:08> Other Ambulatory Orders: Basic Metabolic Panel (Routine) Timeframe: 1 Week Facility: [facility] - Location: Laboratory Ordered By: Dayanara Enriquez <KAL Johnson - Last Filed: 04/08/21 12:08> Care Plan Goals: see below <KAL Johnson - Last Filed: 04/08/21 12:08> Health Concerns: hyponatremia chest pain resolved/ACS ruled out <KAL Johnson - Last Filed: 04/08/21 12:08> Plan of Treatment: stop taking HCTZ for blood pressure call to schedule a follow up appointment with your pcp for blood pressure monitoring and follow up for low sodium recheck your labs in one week <KAL Johnson - Last Filed: 04/08/21 12:08> Assessment: see discharge summary I personally saw and examined the patient and discussed findings, assessment , plan and disposition with KAL Trejo l agree with the content of KAL's documenation. . -Amanda Browning MD --Attending DOS 04/08/21 <KAL Johnson - Last Filed: 04/08/21 12:08> Discharge Date/Time: 04/08/21 13:08 <KAL Johnson - Last Filed: 04/08/21 12:08>
== END 2021-04-08 13:08 | disposition home or self-care (01) | DRG 641 ==
LOC: HO.ED 04:11 → HO.EDOVER 09:23 → HO.S3 15:26
PROVIDERS: Admitting Provider Family Medicine; Emergency Provider Emergency Medicine; PCP Pediatrics; Visit Provider Physician Assistant Medical
DX: E87.1 Hypo-osmolality and hyponatremia (principal); J44.9 Chronic obstructive pulmonary disease, unspecified; I10 Essential (primary) hypertension; K21.9 Gastro-esophageal reflux disease without esophagitis; F17.210 Nicotine dependence, cigarettes, uncomplicated; Z71.6 Tobacco abuse counseling; Z20.822 Contact with and (suspected) exposure to COVID-19; Z88.6 Allergy status to analgesic agent; Z79.51 Long term (current) use of inhaled steroids; Z79.82 Long term (current) use of aspirin; Z79.899 Other long term (current) drug therapy
CPT/HCPCS: 36415; 71045; 80048; 80076; 82077; 83735; 83935; 84300; 84484; 85025; 85379; 85610; 85730; 87635; 93005; 96360; 96361; 99285; J1650